=== PATIENT | female | born 1945 | race Caucasian/White ===

== ENCOUNTER → 2017-03-05 | Outpatient (CLI) | payer MEDICARE ==
[~2017-03-05] MED LIST: PERCOCET 10-321 EACH PO
== END ==
LOC: KOH-I 14:13
DX: R55 Syncope and collapse (principal); I65.23 Occlusion and stenosis of bilateral carotid arteries
CPT/HCPCS: ECHO; 93306; 93880

== ENCOUNTER 2017-03-24 12:26 | Emergency (ER) | payer MEDICARE ==
[2017-03-24 15:04] LABS: HEMOGLOBIN 14.1 gm/dl (12.3-15.3); RED BLOOD COUNT 4.44 M/UL (4.00-5.10); WHITE BLOOD COUNT 7.2 K/UL (4.5-11.0)
[2017-03-24 15:27] LABS: BUN/CREATININE RATIO 27 (0-10)
== END 2017-03-24 16:00 | disposition home or self-care (01) ==
LOC: ER1 12:26
PROVIDERS: Physician Assistant
DX: S60.221A Contusion of right hand, initial encounter (principal); I11.9 Hypertensive heart disease without heart failure; E78.5 Hyperlipidemia, unspecified; Z90.49 Acquired absence of other specified parts of digestive tract; F17.200 Nicotine dependence, unspecified, uncomplicated; Z88.2 Allergy status to sulfonamides; X58.XXXA Exposure to other specified factors, initial encounter; Z79.82 Long term (current) use of aspirin; Z79.899 Other long term (current) drug therapy
CPT/HCPCS: 36415; 73130; 80053; 85025; 85610; 85730; 99283

== ENCOUNTER → 2017-03-25 | Outpatient (CLI) | payer MEDICARE | LOC: KOH-I 11:01 | DX: M79.81 Nontraumatic hematoma of soft tissue (principal) | CPT/HCPCS: 76881 ==

== ENCOUNTER → 2021-01-04 | Outpatient (CLI) | payer MEDICARE, SELFPAY ==
[~2021-01-04] MED LIST changes: +CLINDAMYCIN HC150 MG PO
== END ==
LOC: KOH-I 14:48
DX: R07.82 Intercostal pain (principal)
CPT/HCPCS: 71046

== ENCOUNTER → 2021-02-05 | Outpatient (CLI) | payer MEDICARE, SELFPAY | LOC: ECHO 09:55 | DX: R79.89 Other specified abnormal findings of blood chemistry (principal); I08.3 Combined rheumatic disorders of mitral, aortic and tricuspid valves | CPT/HCPCS: ECHO; 93306 ==

== ENCOUNTER → 2021-02-21 | Outpatient (CLI) | payer MEDICARE | LOC: KOH-I 08:40 | DX: Z13.6 Encounter for screening for cardiovascular disorders (principal); Z87.891 Personal history of nicotine dependence | CPT/HCPCS: 76706-PO ==

== ENCOUNTER → 2021-03-12 | Outpatient (CLI) | payer MEDICARE | LOC: KOH-I 12:22 | DX: F17.210 Nicotine dependence, cigarettes, uncomplicated (principal) | CPT/HCPCS: 71271 ==

== ENCOUNTER → 2021-03-14 | Outpatient (CLI) | payer MEDICARE | LOC: LAB 17:58 | DX: N39.0 Urinary tract infection, site not specified (principal) | CPT/HCPCS: 87086 ==

== ENCOUNTER 2021-03-20 17:04 | Emergency (ER) | payer MEDICARE, SELFPAY ==
[2021-03-20 19:27] LABS: HEMOGLOBIN 14.8 gm/dl (12.3-15.3); RED BLOOD COUNT 4.57 M/UL (4.00-5.10); WHITE BLOOD COUNT 6.7 K/UL (4.5-11.0)
[2021-03-20 19:37] LABS: BUN/CREATININE RATIO 18 (0-10)
== END 2021-03-20 22:30 | disposition home or self-care (01) ==
LOC: ER1 17:04
PROVIDERS: Family Medicine
DX: R10.30 Lower abdominal pain, unspecified (principal); M54.5 Low back pain; F17.200 Nicotine dependence, unspecified, uncomplicated; Z79.01 Long term (current) use of anticoagulants; Z86.718 Personal history of other venous thrombosis and embolism; Z86.711 Personal history of pulmonary embolism; Z90.49 Acquired absence of other specified parts of digestive tract; Z90.710 Acquired absence of both cervix and uterus; Z88.2 Allergy status to sulfonamides
CPT/HCPCS: 80053; 81001; 83690; 85025; 85610; 99284; Q9967

== ENCOUNTER → 2021-05-25 | Outpatient (CLI) | payer MEDICARE, SELFPAY | LOC: NM 07:33 | DX: R74.8 Abnormal levels of other serum enzymes (principal); M89.8X9 Other specified disorders of bone, unspecified site; Z96.653 Presence of artificial knee joint, bilateral; F17.200 Nicotine dependence, unspecified, uncomplicated | CPT/HCPCS: 78306; A9503 ==

== ENCOUNTER 2021-07-18 10:40 | Emergency (ER) | payer MEDICARE ==
[2021-07-18 11:56] LABS: HEMOGLOBIN 14.5 gm/dl (12.3-15.3); RED BLOOD COUNT 4.52 M/UL (4.00-5.10); WHITE BLOOD COUNT 10.8 K/UL (4.5-11.0)
[2021-07-18 12:22] LABS: BUN/CREATININE RATIO 14 (0-10)
== END 2021-07-18 14:13 | disposition home or self-care (01) ==
LOC: ER1 10:40
PROVIDERS: Nurse Practitioner
DX: R14.0 Abdominal distension (gaseous) (principal); E78.5 Hyperlipidemia, unspecified; I10 Essential (primary) hypertension; F17.210 Nicotine dependence, cigarettes, uncomplicated; Z90.710 Acquired absence of both cervix and uterus; Z79.82 Long term (current) use of aspirin; Z79.899 Other long term (current) drug therapy; Z20.822 Contact with and (suspected) exposure to COVID-19
CPT/HCPCS: 51701; 80053; 81001; 82550; 82553; 83605; 83690; 83874; 84484; 84550; 85025; 85610; 99284; U0002

== ENCOUNTER → 2021-09-18 | Outpatient (CLI) | payer MEDICARE | LOC: HEART 5 08:06 | DX: R07.9 Chest pain, unspecified (principal) | CPT/HCPCS: 78452; A9502; J2785 ==

== ENCOUNTER → 2021-11-07 | Outpatient (CLI) | payer MEDICARE | LOC: KOH-I 14:23 | DX: M16.0 Bilateral primary osteoarthritis of hip (principal); M47.816 Spondylosis without myelopathy or radiculopathy, lumbar region | CPT/HCPCS: 73522 ==

== ENCOUNTER 2021-12-02 12:29 | Emergency (ER) | payer MEDICARE ==
[2021-12-02 13:19] LABS: HEMOGLOBIN 14.3 gm/dl (12.3-15.3); RED BLOOD COUNT 4.57 M/UL (4.00-5.10); WHITE BLOOD COUNT 6.5 K/UL (4.5-11.0)
[2021-12-02 13:39] LABS: BUN/CREATININE RATIO 10 (0-10)
[2021-12-02] MEDS ORDERED: OMNICEF 300 MG300 MG PO (17:26)
== END 2021-12-02 17:43 | disposition home or self-care (01) ==
LOC: ER1 12:29
PROVIDERS: Emergency Medicine
DX: N39.0 Urinary tract infection, site not specified (principal); Z20.822 Contact with and (suspected) exposure to COVID-19; E78.5 Hyperlipidemia, unspecified; I10 Essential (primary) hypertension; Z90.710 Acquired absence of both cervix and uterus; Z79.01 Long term (current) use of anticoagulants; F17.210 Nicotine dependence, cigarettes, uncomplicated
CPT/HCPCS: 80053; 81001; 82550; 82553; 83605; 83690; 83874; 84484; 85025; 87077; 87086; 87186; 93005; 96374; 96375; 99284; J0696; J2270; J2405; Q9967; U0002

== ENCOUNTER → 2021-12-24 | Day surgery (SDC) | payer MEDICARE ==
[~2021-12-24] MED LIST changes: +ALDACTONE25 MG PO; +ASPIRIN81 MG PO; +CARVEDILOL6.25 MG PO; +DITROPAN 5 MG TA5 MG PO; +JANTOVEN5 MG PO; +NORVASC2.5 MG PO; +OMNICEF 300 MG300 MG PO; +PLAQUENIL200 MG PO; +PRAVASTATIN SOD40 MG PO; +PROTONIX40 MG PO; +STOOL SOFT-STI1 EACH PO; +TRAMADOL HCL50 MG PO; +ZYLOPRIM 300 M300 MG PO
== END | disposition home or self-care (01) ==
LOC: OR 06:11
DX: K56.699 Other intestinal obstruction unspecified as to partial versus complete obstruction (principal); J44.9 Chronic obstructive pulmonary disease, unspecified; I11.0 Hypertensive heart disease with heart failure; I50.9 Heart failure, unspecified; E78.5 Hyperlipidemia, unspecified; E03.9 Hypothyroidism, unspecified; F17.210 Nicotine dependence, cigarettes, uncomplicated; Z88.1 Allergy status to other antibiotic agents; Z88.2 Allergy status to sulfonamides; Z91.040 Latex allergy status; Z79.82 Long term (current) use of aspirin; Z79.01 Long term (current) use of anticoagulants; Z79.899 Other long term (current) drug therapy; Z20.822 Contact with and (suspected) exposure to COVID-19
CPT/HCPCS: J2405; J2704; J7120

== ENCOUNTER 2022-02-02 10:10 | Emergency (ER) | payer MEDICARE ==
[2022-02-02 11:54] LABS: HEMOGLOBIN 14.2 gm/dl (12.3-15.3); RED BLOOD COUNT 4.56 M/UL (4.00-5.10); WHITE BLOOD COUNT 8.1 K/UL (4.5-11.0)
[2022-02-02 12:21] LABS: BUN/CREATININE RATIO 20 (0-10)
[2022-02-03 03:46] LABS: HEMOGLOBIN 12.8 gm/dl (12.3-15.3); WHITE BLOOD COUNT 7.3 K/UL (4.5-11.0)
[2022-02-03 03:50] LABS: RED BLOOD COUNT 4.1 M/UL (4.00-5.10)
== END 2022-02-03 08:00 ==
LOC: ER1 10:10
PROVIDERS: Emergency Medicine; Nurse Practitioner
DX: K92.2 Gastrointestinal hemorrhage, unspecified (principal); Z20.822 Contact with and (suspected) exposure to COVID-19; I10 Essential (primary) hypertension; F17.210 Nicotine dependence, cigarettes, uncomplicated; Z86.718 Personal history of other venous thrombosis and embolism; Z79.01 Long term (current) use of anticoagulants; Z86.711 Personal history of pulmonary embolism
CPT/HCPCS: 0240U; 71045; 80053; 81001; 82150; 82272; 82550; 82553; 83690; 84484; 85025; 85610; 85730; 87086; 99285; Q9967

== ENCOUNTER → 2022-03-15 | Outpatient (CLI) | payer MEDICARE ==
[2022-03-15 14:19] LABS: HEMOGLOBIN 13.8 gm/dl (12.3-15.3); RED BLOOD COUNT 4.4 M/UL (4.00-5.10); WHITE BLOOD COUNT 5.9 K/UL (4.5-11.0)
== END ==
LOC: LAB 13:50
PROVIDERS: Nurse Practitioner Family
DX: T84.84XA Pain due to internal orthopedic prosthetic devices, implants and grafts, initial encounter (principal)
CPT/HCPCS: 36415; 85027; 85652; 86140

== ENCOUNTER → 2022-04-04 | Outpatient (CLI) | payer MEDICARE | LOC: RAD 08:05 | DX: M16.11 Unilateral primary osteoarthritis, right hip (principal) | CPT/HCPCS: 36415; 85610; J3301; Q9967 ==

== ENCOUNTER → 2022-06-03 | Outpatient (CLI) | payer MEDICARE | LOC: LAB 16:34 | DX: Z96.651 Presence of right artificial knee joint (principal) | CPT/HCPCS: 36415; 82495 ==

== ENCOUNTER → 2022-07-08 | Outpatient (CLI) | payer MEDICARE | LOC: NM 07-03 08:10 | DX: T84.84XA Pain due to internal orthopedic prosthetic devices, implants and grafts, initial encounter (principal) | CPT/HCPCS: 78306; A9503 ==